=== PATIENT | female | born 1965 | race Caucasian/White ===

== ENCOUNTER → 2023-12-16 | Outpatient (CLI) | payer MEDICARE, MEDICAID | END | disposition home or self-care (01) | LOC: MAMMO 10:25 | PROVIDERS: ATTEND Family Medicine | DX: Z12.31 Encounter for screening mammogram for malignant neoplasm of breast (principal) ==

== ENCOUNTER 2025-01-06 14:16 | Inpatient (IN) | payer MEDICARE ==
[~2025-01-06] VITALS: Ht 162.5 cm; Wt 114.1 kg
[2025-01-06 15:31] LABS: BASO # 0.1 10*3/uL (0.0-0.1); BASO % 0.6 % (0.0-1.0); EOS # 0.1 10*3/uL (0.0-0.4); EOS % 1.1 % (1.0-4.0); MEAN CELL VOLUME 90.5 fl (81.0-99.0); MEAN CORPUSCULAR HGB 29.1 pg (27.0-31.0); MEAN PLATELET VOLUME 9.3 fl (9.6-12.3); MONO # 0.7 10*3/uL (0.1-1.0); MONO % 8.4 % (3.0-9.0); NEUT # 6.2 10*3/uL (2.3-7.9); NEUT % 72.7 % (47.0-73.0); NUCLEATED RED BLOOD CELL 0.0 % (0.0-0.0); NUCLEATED RED BLOOD CELL 0.0 10*3/uL (0.0-0.0); PLATELET COUNT AUTOMATED 344 10*3/uL (130-400); RED CELL DISTRI WIDTH 13.4 % (0-14.5)
[2025-01-06 16:00] LABS: BUN 16 mg/dl (9-23)
[2025-01-06] MEDS ORDERED: LISINOPRIL20 MG PO (17:33)
[2025-01-06] MEDS ORDERED: GLIMEPIRIDE2 MG PO (17:33)
[2025-01-06] MEDS ORDERED: FARXIGA10 M1 PO (17:33)
[2025-01-06] MEDS ORDERED: FUROSEMIDE40 MG PO (17:34)
[2025-01-06] MEDS ORDERED: METFORMIN HYDR500 MG PO (17:34)
[2025-01-06] MEDS ORDERED: POTASSIUM CHLO20 ME4 PO (17:35)
[2025-01-06] MEDS ORDERED: SERTRALINE HYDR50 MG PO (17:36)
[2025-01-06] MEDS ORDERED: OZEMPIC1 MG/0.71 SQ (17:38)
[2025-01-06] MEDS ORDERED: Ondansetron Hydrochloride 4 MG/2 ML VIAL IV PRN (17:45)
[2025-01-06] MEDS ORDERED: ACETAMINOPHEN 325 MG TAB PO PRN (17:45)
[2025-01-06] MEDS ORDERED: ACETAMINOPHEN 650 MG SUPP R PRN (17:45)
[2025-01-06] MEDS ORDERED: BISACODYL 10 MG SUPP R PRN (17:45)
[2025-01-06] MEDS ORDERED: BISACODYL 5 MG TAB PO PRN (17:45)
[2025-01-06 18:10] VITALS: BP 114/43
[2025-01-06] MEDS ORDERED: FOAM BANDAGE HEEL T ONE (18:26)
[2025-01-06 20:00] VITALS: BP 137/59
[2025-01-06] MEDS ORDERED: NYSTATIN 15 GM BOT T SCH (22:00)
[2025-01-06] MEDS ORDERED: DEXTROSE 50% 25 GM/50 ML VIAL IV PRN (22:10)
[2025-01-07] VITALS: BP 140/62
[2025-01-07] MEDS ORDERED: Piperacillin Sodium/Tazobact 2.25 GM in SODIUM CHLORIDE 0.9% 50 ML IV SCH
[2025-01-07] MEDS ORDERED: VANCOMYCIN HCL 1,250 MG in SODIUM CHLORIDE 0.9% 250 ML IV SCH (04:00)
[2025-01-07 06:08] LABS: BASO # 0.1 10*3/uL (0.0-0.1); BASO % 0.6 % (0.0-1.0); EOS # 0.2 10*3/uL (0.0-0.4); EOS % 3.0 % (1.0-4.0); MEAN CELL VOLUME 91.0 fl (81.0-99.0); MEAN CORPUSCULAR HGB 29.0 pg (27.0-31.0); MEAN PLATELET VOLUME 9.7 fl (9.6-12.3); MONO # 0.7 10*3/uL (0.1-1.0); MONO % 8.5 % (3.0-9.0); NEUT # 5.4 10*3/uL (2.3-7.9); NEUT % 66.8 % (47.0-73.0); NUCLEATED RED BLOOD CELL 0.0 % (0.0-0.0); NUCLEATED RED BLOOD CELL 0.0 10*3/uL (0.0-0.0); PLATELET COUNT AUTOMATED 308 10*3/uL (130-400); RED CELL DISTRI WIDTH 13.6 % (0-14.5)
[2025-01-07 06:17] LABS: BUN 14 mg/dl (9-23); FREE T4 1.22 ng/dl (0.89-1.76); LDL CHOLESTEROL 92 mg/dL (9-159); SGPT/ALT 13 U/L (5-49)
[2025-01-07 06:34] LABS: ACT PARTIAL THROMBO TIME 26.4 SECONDS (20.0-32.1)
[2025-01-07 07:11] LABS: VITAMIN D, 25-HYDROXY 30.5 ng/mL (30-100)
[2025-01-07] MEDS ORDERED: INSULIN LISPRO 1 UNIT/0.01 ML SQ SCH (07:30)
[2025-01-07 08:00] VITALS: BP 148/69
[2025-01-07] MEDS ORDERED: FUROSEMIDE 40 MG TAB PO SCH (10:00)
[2025-01-07] MEDS ORDERED: FARXIGA 10 MG PO SCH (10:00)
[2025-01-07] MEDS ORDERED: POTASSIUM CHLORIDE 20 MEQ TAB PO SCH (10:00)
[2025-01-07] MEDS ORDERED: LISINOPRIL 20 MG TAB PO SCH (10:00)
[2025-01-07 12:00] VITALS: BP 133/50
[2025-01-07 16:00] VITALS: BP 102/46
[2025-01-07 20:00] VITALS: BP 116/50
[2025-01-08] VITALS: BP 131/63
[2025-01-08 06:14] LABS: BASO # 0.1 10*3/uL (0.0-0.1); BASO % 0.9 % (0.0-1.0); EOS # 0.4 10*3/uL (0.0-0.4); EOS % 3.9 % (1.0-4.0); MEAN CELL VOLUME 92.4 fl (81.0-99.0); MEAN CORPUSCULAR HGB 29.9 pg (27.0-31.0); MEAN PLATELET VOLUME 9.4 fl (9.6-12.3); MONO # 0.8 10*3/uL (0.1-1.0); MONO % 8.3 % (3.0-9.0); NEUT # 6.0 10*3/uL (2.3-7.9); NEUT % 65.8 % (47.0-73.0); NUCLEATED RED BLOOD CELL 0.0 % (0.0-0.0); NUCLEATED RED BLOOD CELL 0.0 10*3/uL (0.0-0.0); PLATELET COUNT AUTOMATED 306 10*3/uL (130-400); RED CELL DISTRI WIDTH 13.6 % (0-14.5)
[2025-01-08 06:40] LABS: BUN 14 mg/dl (9-23)
[2025-01-08 08:00] VITALS: BP 135/63
[2025-01-08 12:00] VITALS: BP 121/60
[2025-01-08 16:00] VITALS: BP 126/61
[2025-01-08 20:00] VITALS: BP 127/67
[2025-01-09] VITALS: BP 140/64
[2025-01-09 06:20] LABS: BUN 14 mg/dl (9-23)
[2025-01-09 06:30] LABS: BASO # 0.1 10*3/uL (0.0-0.1); BASO % 0.9 % (0.0-1.0); EOS # 0.4 10*3/uL (0.0-0.4); EOS % 4.3 % (1.0-4.0); MEAN CELL VOLUME 93.7 fl (81.0-99.0); MEAN CORPUSCULAR HGB 29.1 pg (27.0-31.0); MEAN PLATELET VOLUME 9.7 fl (9.6-12.3); MONO # 0.7 10*3/uL (0.1-1.0); MONO % 7.7 % (3.0-9.0); NEUT # 6.2 10*3/uL (2.3-7.9); NEUT % 66.4 % (47.0-73.0); NUCLEATED RED BLOOD CELL 0.0 % (0.0-0.0); NUCLEATED RED BLOOD CELL 0.0 10*3/uL (0.0-0.0); PLATELET COUNT AUTOMATED 320 10*3/uL (130-400); RED CELL DISTRI WIDTH 13.5 % (0-14.5)
[2025-01-09 08:00] VITALS: BP 138/68
[2025-01-09 12:00] VITALS: BP 124/63
[2025-01-09 16:03] VITALS: BP 121/98
[2025-01-09] MEDS ORDERED: FOAM BANDAGE 1 EACH BANDAGE T ONE (16:44)
[2025-01-09] MEDS ORDERED: CHAIR CUSHION DEVICE ONE (16:44)
[2025-01-09] MEDS ORDERED: HEEL PROTECTOR DEVICE ONE (16:44)
[2025-01-09 20:00] VITALS: BP 127/63
[2025-01-10] VITALS: BP 135/67
[2025-01-10 08:00] VITALS: BP 138/64
[2025-01-10 12:00] VITALS: BP 128/55
[2025-01-10] MEDS ORDERED: VIBRAMYCIN100 MG PO (12:19)
== END 2025-01-10 16:32 | disposition home health service (06) | DRG 602 ==
LOC: ED 14:16 → 5E 16:59 → EDHOLD 16:59 → 5E 17:38
PROVIDERS: Nurse Practitioner Family; ADMIT Family Medicine; ATTEND Family Medicine
DX: L03.115 Cellulitis of right lower limb (principal); L89.323 Pressure ulcer of left buttock, stage 3; F79 Unspecified intellectual disabilities; I10 Essential (primary) hypertension; Z66 Do not resuscitate; F41.9 Anxiety disorder, unspecified; F32.A Depression, unspecified; R00.0 Tachycardia, unspecified; E11.65 Type 2 diabetes mellitus with hyperglycemia; L89.150 Pressure ulcer of sacral region, unstageable; L89.310 Pressure ulcer of right buttock, unstageable; Z79.899 Other long term (current) drug therapy; Z90.49 Acquired absence of other specified parts of digestive tract; Z84.89 Family history of other specified conditions; Z79.01 Long term (current) use of anticoagulants; Z79.2 Long term (current) use of antibiotics

== ENCOUNTER 2025-02-24 11:58 | Emergency (ER) | payer MEDICARE ==
[~2025-02-24] VITALS: Ht 172.7 cm; Wt 108.9 kg
[~2025-02-24 11:58] MED LIST: FARXIGA10 M1 PO; FUROSEMIDE40 MG PO; GLIMEPIRIDE2 MG PO; LISINOPRIL20 MG PO; METFORMIN HYDR500 MG PO; OZEMPIC1 MG/0.71 SQ; POTASSIUM CHLO20 ME4 PO; SERTRALINE HYDR50 MG PO; VIBRAMYCIN100 MG PO
[2025-02-24 12:55] LABS: BASO # 0.0 10*3/uL (0.0-0.1); BASO % 0.5 % (0.0-1.0); EOS # 0.2 10*3/uL (0.0-0.4); EOS % 2.3 % (1.0-4.0); MEAN CELL VOLUME 88.3 fl (81.0-99.0); MEAN CORPUSCULAR HGB 28.2 pg (27.0-31.0); MEAN PLATELET VOLUME 9.6 fl (9.6-12.3); MONO # 0.6 10*3/uL (0.1-1.0); MONO % 7.4 % (3.0-9.0); NEUT # 6.0 10*3/uL (2.3-7.9); NEUT % 75.1 % (47.0-73.0); NUCLEATED RED BLOOD CELL 0.0 % (0.0-0.0); NUCLEATED RED BLOOD CELL 0.0 10*3/uL (0.0-0.0); PLATELET COUNT AUTOMATED 300 10*3/uL (130-400); RED CELL DISTRI WIDTH 13.7 % (0-14.5)
[2025-02-24 13:18] LABS: BILIRUBIN Negative (Negative); BLOOD 1+ (Negative); CLARITY Cloudy (Clear); COLOR Yellow (Yellow); KETONE Negative (Negative); LEUKO ESTERASE 1+ (Negative); NITRITE Negative (Negative); PH 5.5 (4.5-8.0); SPECIFIC GRAVITY 1.015 (1.001-1.030); UROBILINOGEN 0.2 E.U./dl (0.0-1.0)
[2025-02-24 13:26] LABS: BACTERIA 4+
[2025-02-24 13:29] LABS: BUN 17 mg/dl (9-23); SGPT/ALT 17 U/L (5-49)
[2025-02-24] MEDS ORDERED: CEPHALEXIN500 M1 PO (16:11)
[2025-02-24] MEDS ORDERED: BACTRIM 400-801 EACH PO (16:12)
[2025-02-24] MEDS ORDERED: FUROSEMIDE 20 MG/2 ML VIAL IV ONE (16:15)
== END 2025-02-24 16:36 | disposition home or self-care (01) ==
LOC: ED 11:58
PROVIDERS: Nurse Practitioner Family
DX: R60.0 Localized edema (principal); L03.115 Cellulitis of right lower limb; N30.01 Acute cystitis with hematuria; F41.9 Anxiety disorder, unspecified; E11.9 Type 2 diabetes mellitus without complications; I10 Essential (primary) hypertension; E03.9 Hypothyroidism, unspecified